=== PATIENT | male | born 1970 | race Caucasian/White ===

== ENCOUNTER 2024-03-31 13:29 | Emergency (ER) | payer SELFPAY ==
[~2024-03-31 13:29] MED LIST: EPINEPHrine 1 MG/10 ML (1:10,000) SYRINGE IV ONE; Etomidate 20 MG/10 ML VIAL IV ONE; Succinylcholine PF 200 MG/10 ML SYRINGE IV ONE
[2024-03-31 14:02] VITALS: BP 113/25; PULSE 0
--- NOTE | 2024-03-31 16:11 | NUR ---
plastics factory worker was informed pt was in code blue upon arrival to ER. Pt upon arrival. plastics factory worker spoke with Director Maribel Padilla who obtained , Murphy Rodriguez's [phone] contact information from EMS. arrived shortly after patient and discussed with Doctor pt's status. DaughterFarnaz later arrived. Both went to see patient in room. Mushroom Growing Supervisor Lizzeth in with family. SW called Reel Fed Printer Carol at 1:52 and 1:54pm on personal phone and left vm. SW contacted Reel Fed Printer Jol at 1:53pm who states he will inform Reel Fed Printer. plastics factory worker and Prince Moreau discussed with patient family. Pt and are from [place], [place] and were visiting for daughter's graduation from college this weekend. Pt has a son, Mega and called him and pt's mother to discuss. Family declined an autopsy due to faith preferences and declined organ donation. Family declined creamtion. They chose [facility] in [place], [place] as this is where pt's mother will eventually be buried. Mushroom Growing Supervisor is working on arrangements. informed SW they have the same insurance as daughter, Farnaz who was recently in the ER and she did not have her insurance card on her. SW informed admissions. plastics factory worker was present with family and tesha's partner, Shay when Associate Reel Fed Printer, Stephanie lagos.
--- NOTE | 2024-04-01 13:39 | NUR ---
Data: Late entry due to systems down processing. 03/31/2024 at 1446 call center receptionist Reproducer called to ER1 for Code Blue. Patient was upon Reproducer's arrival. Patient's and Daughter present. Also Daughter's fiance. Patient's Mother and Son on the phone. Assessment: Grief Plan of Care: Reproducer provided prayer, supportive listening, ministry of presence. Family thanked Reproducer for showing up for them.
== END 2024-03-31 17:18 | disposition expired ==
LOC: COL.ER 13:29
DX: I46.9 Cardiac arrest, cause unspecified (principal)
CPT/HCPCS: J0171